=== PATIENT | male | born 1975 | race Caucasian/White ===

== ENCOUNTER 2018-06-14 01:42 | Emergency (ER) | payer BC ==
[2018-06-14] MEDS ORDERED: Metoclopramide 10 MG/2 ML SDV IVPUSH ONE (02:10)
[2018-06-14] MEDS ORDERED: HYDROmorphone 1 MG/ML Syringe IVPUSH ONE (02:10)
--- NOTE | 2018-06-14 02:14 | EDM.PDOC ---
ED HPI GENERAL MEDICAL PROBLEM - General Chief Complaint: Gastrointestinal Problem Stated Complaint: LEFT SIDE ABDOMINAL PAIN STRONG URINE FEVER Time Seen by Provider: 06/14/18 02:09 Source of Information: Reports: Patient History Limitations: Reports: No Limitations - History of Present Illness INITIAL COMMENTS - FREE TEXT/NARRATIVE: 42-year-old male presents to the ED with left flank and inferior lower flank pain that radiates slightly into the upper abdomen. Been present for 2 days. Came on gradually. Associated with noted milky looking urine with a bit of in order. Set associated fever and chills. No history of kidney stones and the pain is never made him nauseated although it's rated as 5 out of 10. States his bowel function has been normal. No previous abdominal surgery. Denies cough or sputum production. Some sore throat. Onset: Gradual Onset Date: 06/12/18 Duration: Day(s): (Started about 2 days ago), Constant Location: Reports: Back Quality: Reports: Ache (Left flank and low back area radiating slightly into the abdomen.), Pressure Severity: Moderate Improves with: Reports: None, Rest Worsens with: Reports: Movement Context: Denies: Activity, Exercise (Slightly worse with movement), Lifting, Sick Contact, Trauma, Other Associated Symptoms: Reports: Fever/Chills, Loss of Appetite. Denies: No Other Symptoms, Confusion, Chest Pain, Cough, cough w sputum, Diaphoresis, Headaches, Malaise, Nausea/Vomiting, Rash (Less than normal), Seizure, Shortness of Breath , Syncope, Weakness Left Lower Abdomen Pain Score (Numeric/FACES): 6 - Related Data Allergies Allergy/AdvReac Type Severity Reaction Status Date / Time No Known Allergies Allergy Verified 06/14/18 01:54 Home Meds: Home Meds . [No Known Home Meds] 06/14/18 [History] Past Medical History Respiratory History: Reports: Sleep Apnea - Past Surgical History HEENT Surgical History: Reports: Oral Surgery, Other (See Below) Other HEENT Surgeries/Procedures: thyroglossal duct cyst removed Social & Family History - Family History Family Medical History: Noncontributory - Tobacco Use Smoking Status *Q: Never Smoker - Caffeine Use Caffeine Use: Reports: Coffee, Tea - Recreational Drug Use Recreational Drug Use: No - Living Situation & Occupation Occupation: Employed ED ROS GENERAL - Review of Systems Review Of Systems: See Below Constitutional: Reports: Fever, Chills, Weakness, Fatigue HEENT: Reports: Throat Pain Respiratory: Reports: No Symptoms Cardiovascular: Reports: No Symptoms Endocrine: Reports: Fatigue GI/Abdominal: Reports: Abdominal Pain, Decreased Appetite. Denies: Constipation (Mild left upper quadrant abdominal pain mostly in his left flank and inferior to the flank area.), Diarrhea, Difficulty Swallowing, Distension, Flatus, Hematemesis, Hematochezia, Melena, Mucous in Stool, Stool Incontinence, Vomiting : Reports: Flank Pain, Other (Urine seems to be a bit of an odor to it and is no tear in color). Denies: Discharge, Dysuria, Frequency (Left side), Hematuria , Pain, Urgency Musculoskeletal: Reports: Back Pain Skin: Reports: No Symptoms Neurological: Reports: No Symptoms Psychiatric: Reports: No Symptoms Hematologic/Lymphatic: Reports: No Symptoms Immunologic: Reports: No Symptoms ED EXAM, GI/ABD - Physical Exam Exam: See Below Exam Limited By: No Limitations General Appearance: Alert, WD/WN, No Apparent Distress, Other (Vital signs are all normal. BP is slightly elevated at 150 10/02/01.) Eyes: Bilateral: Normal Appearance Throat/Mouth: Normal Inspection, Normal Lips, Normal Teeth, Normal Oropharynx Head: Atraumatic, Normocephalic Neck: Normal Inspection, Supple, Non-Tender, Full Range of Motion Respiratory/Chest: No Respiratory Distress, Lungs Clear, Normal Breath Sounds, No Accessory Muscle Use Cardiovascular: Normal Peripheral Pulses, Regular Rate, Rhythm, No Edema, No Gallop, No Murmur, No Rub GI/Abdominal Exam: Normal Bowel Sounds, Soft, No Organomegaly, No Distention, No Abnormal Bruit, No Mass, Pelvis Stable, Tender (No surgical scars L tenderness left upper quadrant and left mid lateral abdomen along the distribution of the descending colon.), Other Back Exam: Normal Inspection, Full Range of Motion. No: CVA Tenderness (L), CVA Tenderness (R) Extremities: Normal Inspection, Normal Range of Motion, Non-Tender, No Pedal Edema Neurological: Alert, Oriented, CN II-XII Intact, Normal Cognition Psychiatric: Normal Affect, Normal Mood Skin Exam: Warm, Dry, Intact, Normal Color, No Rash Course - Vital Signs Last Recorded V/S: Last Vital Signs Temp 36.1 C 06/14/18 01:52 Pulse 80 06/14/18 01:52 Resp 18 06/14/18 01:52 BP 156/102 H 06/14/18 01:52 Pulse Ox 97 06/14/18 01:52 - Orders/Labs/Meds Orders: Active Orders 24 hr Category Date Time Status Abdomen 1V Flat [CR] Stat Exams 06/14/18 02:10 Taken Labs: Laboratory Tests 06/14/18 06/14/18 06/14/18 Range/Units 02:20 02:20 03:50 WBC 8.52 (4.23-9.07) K/mm3 RBC 5.02 (4.63-6.08) M/mm3 Hgb 14.8 (13.7-17.5) gm/L Hct 42.9 (40.1-51.0) % MCV 85.5 (79.0-92.2) fl MCH 29.5 (25.7-32.2) pg MCHC 34.5 (32.2-35.5) g/dl RDW Std Deviation 42.0 (35.1-43.9) fL Plt Count 256 (163-337) K/mm3 MPV 9.4 (9.4-12.3) fl Neutrophils % (Manual) 53 (40-60) % Band Neutrophils % 2 (0-10) % Lymphocytes % (Manual) 32 (20-40) % Atypical Lymphs % 0 % Monocytes % (Manual) 6 (2-10) % Eosinophils % (Manual) 6 (0.8-7.0) % Basophils % (Manual) 1 (0.2-1.2) Hypersegmented Neuts Rare Platelet Estimate Adequate Plt Morphology Comment See note RBC Morph Comment Normal Sodium 140 (136-145) mEq/L Potassium 3.5 (3.5-5.1) mEq/L Chloride 103 (98-107) mEq/L Carbon Dioxide 25 (21-32) mEq/L Anion Gap 15.5 H (5-15) BUN 13 (7-18) mg/dL Creatinine 0.8 (0.7-1.3) mg/dL Est Cr Clr Drug Dosing 127.34 mL/min Estimated GFR (MDRD) > 60 (>60) mL/min BUN/Creatinine Ratio 17.5 (14-18) Glucose 119 H (74-106) mg/dL Calcium 8.6 (8.5-10.1) mg/dL Total Bilirubin 0.5 (0.2-1.0) mg/dL AST 22 (15-37) U/L ALT 30 (16-63) U/L Alkaline Phosphatase 93 (46-116) U/L C-Reactive Protein 0.6 (<1.0) mg/dL Total Protein 6.7 (6.4-8.2) g/dl Albumin 3.4 (3.4-5.0) g/dl Globulin 3.3 gm/dL Albumin/Globulin Ratio 1.0 (1-2) Lipase 142 (73-393) U/L Urine Color Yellow (Yellow) Urine Appearance Clear (Clear) Urine pH 7.0 (5.0-8.0) Ur Specific Kamas 1.015 (1.005-1.030) Urine Protein Negative (Negative) Urine Glucose (UA) Negative (Negative) Urine Ketones Negative (Negative) Urine Occult Blood Negative (Negative) Urine Nitrite Negative (Negative) Urine Bilirubin Negative (Negative) Urine Urobilinogen 0.2 (0.2-1.0) Ur Leukocyte Esterase Negative (Negative) Urine RBC 0-5 (0-5) /hpf Urine WBC Not seen (0-5) /hpf Ur Epithelial Cells Not seen (0-5) /hpf Urine Bacteria Not seen (FEW) /hpf Urine Mucus Not seen (FEW) /hpf Meds: Medications Discontinued Medications Generic Name Dose Route Start Last Admin Trade Name Freq PRN Reason Stop Dose Admin Hydromorphone HCl 1 mg 06/14/18 02:10 06/14/18 02:24 Dilaudid IVPUSH 06/14/18 02:11 1 mg ONETIME ONE Administration Sodium Chloride 1,000 mls @ 250 mls/hr 06/14/18 02:15 06/14/18 02:20 Normal Saline IV 250 mls/hr ASDIRECTED DEANA Administration Ketorolac Tromethamine 30 mg 06/14/18 02:15 06/14/18 02:23 Toradol IVPUSH 30 mg ONETIME DEANA Administration Magnesium Citrate 240 ml 06/14/18 04:37 06/14/18 05:07 Citrate Of Magnesia PO 06/14/18 04:38 240 ml ONETIME ONE Administration Metoclopramide HCl 10 mg 06/14/18 02:10 06/14/18 02:22 Reglan IVPUSH 06/14/18 02:11 10 mg ONETIME ONE Administration - Radiology Interpretation Free Text/Narrative:: 82-year-old male presents the ED with rather nonspecific symptoms of left flank low back discomfort 2 days. Appreciate his urine has seemed to have a bit of an odor to it and was more alkaline or milky in color. No other bowel dysfunction. No previous abdominal surgery. No dysuria urgency or frequency. Associated fever and chills. Pain is rated as 5 out of 10 tonight. Is like somebody kicked him in the left back area. No history of renal stones. Also no associated nausea vomiting benign abdominal examination no tenderness to palpation along the distribution of the sigmoid colon superiorly. Plan routine labs no blood cultures at this time. One view of the abdomen to be done urinalysis. IV will be normal saline at 250 mils per hour. Given Dilaudid 1 mg IV and Reglan 10 mg IV for pain rated as 5 out of 10 - Re-Assessments/Exams Free Text/Narrative Re-Assessment/Exam: 06/14/18 03:21 Labs reveal a normal white count at 8.52. Differential is 53% neutrophils and 2% bands. Hemoglobin is 14.8. Hematocrit is 42.9. Platelet count 256,000. KUB reveals increased stool from the hepatic flexure to the splenic flexure with a large amount of air in the splenic flexure. The remainder the colon is otherwise empty. 06/14/18 03:34 Sodium is 140 with a potassium 3.5. Chloride 1 through the bicarbonate 25. Anion gap is 15.5. Creatinine is 0.8 EGFR is greater than 60. Glucose is 119 with a calcium of 8.6. Liver function is normal C-reactive protein is 0.6 total protein is 6.7 albumin fraction 3.4 lipase normal at 142 06/14/18 04:18 Urinalysis has come back and is completely normal as well. Certainly no sign of urinary tract infection or stone. 06/14/18 04:35 patient reports his pain is much better. Has mild pressure discomfort left flank area. Discussed the findings of his labs and x-rays with him. Plan will be to allow him to have the full liter of IV fluids since he hasn 't been eating or drinking all that well the last few days. I will send him home with a bottle of magnesium citrate to take 8 ounces later this morning with 6 ounces of juice of choice to provide bowel cleanse. I suspect this is the major cause of his abdominal pain. Departure - Departure Time of Disposition: 04:49 Disposition: Home, Self-Care 01 Condition: Fair Clinical Impression: Acute left flank pain, Constipation by delayed colonic transit, Mild dehydration - Discharge Information *PRESCRIPTION DRUG MONITORING PROGRAM REVIEWED*: Not Applicable *COPY OF PRESCRIPTION DRUG MONITORING REPORT IN PATIENT KATHARINA: Not Applicable Instructions: Constipation, Adult, [id number], Flank Pain, Adult, Easy-to- Read Referrals: PCP,Not In Area [Primary Care Provider] - Forms: ED Department Discharge, ED Return to Work/School Form Additional Instructions: Evaluation the emergency room this morning in regards to persistent left back flank pain area pain for the last 2 days. You appreciated also a milky appearance to the urine which can be from dehydration as well. Urinalysis proved to show no signs of infection and no signs of a kidney stone. Lab work revealed a normal white count with no signs of systemic or serious infection. Kidneys liver and pancreas proved to be normal as well. X-ray of the abdomen however showed a large amount of stool throughout the transverse colon which is part of the: Lives across her upper abdomen and rests on top of both kidneys. Remainder the colon is empty in terms that you're bowels have been working. However for some reason still has backed up in the mid: Possibly due to not eating that well the last few days. Digestive treatment is magnesium citrate 8 ounces by mouth mixed with 5-6 ounces of juice of choice or Gatorade/Powerade taken by mouth once when you wake up this morning. This will take an hour to work in your bowels will usually move 3-4 times often ending in some degree of diarrhea. This should provide bowel cleanse and I'm thinking it should relieve your good portion of your abdominal and left flank pain. If left flank pain is not markedly improved after bowel cleanse or worsens in anyway you should be seen again. Note given to excuse her from the workplace certainly for tonight and likely for tomorrow as well. Treatment in the ED was a liter of IV fluids and pain management with Dilaudid, Toradol and Reglan for nausea relief. - My Orders Last 24 Hours: My Active Orders 06/14/18 02:10 Abdomen 1V Flat [CR] Stat - Assessment/Plan Last 24 Hours: My Active Orders 06/14/18 02:10 Abdomen 1V Flat [CR] Stat
[2018-06-14] MEDS ORDERED: Ketorolac 30 MG/ML SDV IVPUSH SCH (02:15)
[2018-06-14] MEDS ORDERED: Sodium Chloride 0.9% 1,000 ML IV SCH (02:15)
[2018-06-14] MEDS ORDERED: Magnesium Citrate Solution 296 ML Bottle PO ONE (04:37)
--- NOTE | 2018-06-14 11:43 | CR ---
Abdomen: Supine view of the abdomen was obtained. Comparison: No previous study. Slight increased stool within the right and transverse colon is seen. Bowel gas pattern is unremarkable. Bony structures appear within normal limits for age. No abnormal calcifications or discrete soft tissue abnormality is seen. Impression: 1. Slight increased stool within the colon. 2. Supine abdominal x-rays otherwise unremarkable. Diagnostic code #2
== END 2018-06-14 05:07 | disposition home or self-care (01) ==
LOC: JD.ED 01:42
DX: K59.01 Slow transit constipation (principal); E86.0 Dehydration
CPT/HCPCS: 36415; 74018; 80053; 81001; 83690; 85007; 85027; 86140; 96361; 96374; 96375; 99284; A9270; J1170; J1885; J2765; J7040